=== PATIENT | female | born 1985 | race Caucasian/White ===

== ENCOUNTER 2020-09-21 06:55 | Day surgery (SDC) | payer OTHER ==
[~2020-09-21] VITALS: Ht 162.6 cm; Wt 79.1 kg
--- NOTE | 2020-09-21 08:01 | NUR ---
PT ALERT, ORIENTED AND SUPPORTED BY HER ALEM. PT TRAVELLED FROM [place] THIS MORNING, BOTH SEEM PREPARED, HAVE FEW QUESTIONS. PT STATED SHE HAD NOT HAD ANY SURGERY BEFORE, GAVE OUTLINE OF THE DAY. ALL QUESTONS ASKED ANSWERED. GAVE ENCOURAGEMENT AND BLESSING. WILL FOLLOW
--- NOTE | 2020-09-21 08:42 | NUR ---
REPORT GIVEN TO WOOD MORTON RN. PRE OP ABX SCANNED AND GIVEN BY KEVIN MORTON. PT TO OR.
--- NOTE | 2020-09-21 09:28 | NUR ---
09/21/20 0928 Demetrice Bajwa 3617-PATIENT ARRIVED TO PACU ON 6L MASK RR EVEN NONAROUSABLE ORAL AIRWAY IN PLACE. SR. IVF INFUSING. PACKING TO NOSE WITH SUTURES GAUZE AND TAPE PLACED OVER SMALL AMT OF DRAIANGE.
--- NOTE | 2020-09-21 10:10 | NUR ---
PT ARRIVED FROM PACU. REPORT RECEIVED FROM KEVIN EAST. PT ALERT AND ORIENTED. PT DENIES NAUSEA, REPORTS 6/10 BURNING PAIN IN NASAL AND SINUS AREA. PT ALSO REPORTS 4/10 BURNING EYES. COOL CLOTH PROVIDED FOR EYES WHICH DROPS PAIN TO 2/10. SEE MAR FOR MEDICATION GIVE FOR NASAL/SINUS PAIN. GAUZE DRESSING SHOWS SMALL AMOUNT OF RED/PINK DRAINAGE. PT TOELRATING WATER AND PO CRACKERS. VITAL SIGNS STABLE. PT DENIES ADDITIONAL REQUESTS OR COMPLAINTS. BED RAILS UP. CALL LIGHT WITHIN REACH. PTS AT BEDSIDE.
[2020-09-21] MEDS ORDERED: CEPHALEXIN500 M1 PO (10:34)
[2020-09-21] MEDS ORDERED: HYDROCODON-ACE1 EA10 PO (10:34)
--- NOTE | 2020-09-21 11:00 | NUR ---
THIS RN TO ROOM TO CHECK ON PT. PT REPORTS PAIN IN EYES AND NOSE HAVE RESOLVED, NOW 0/10. PT DENIES NAUSEA. PT TOLERATING PO FOOD AND FLUIDS. PT UP WITH STAND BY ASSIST TO AMBULATE TO RESTROOM, PT VOIDS 400ML CLEAR YELLOW URINE WITHOUT ISSUE. STAND BY ASSIST BACK TO BED. PT REPORTS SHE FEELS "READY TO GO HOME." VITAL SIGNS TAKEN, STABLE. MUSTACH GAUZE DRESSING TO NOSE UNCHANGED. PT REQUESTS GAUZE BE CHANGED BEFORE DISCHARGE. EDUCATION DONE WITH PT REGARDING WHEN AND HOW TO CHANGE DRESSING. PT DEMONSTRATES UNDERSTANDING AND CHANGES GAUZE MUSTACH DRESSING WITH ASSISTANCE FROM THIS RN. GAUZE AND PAPER TAPE SUPPLIES PROVIDED TO PT FOR DRESSING CHAGNES PRN AT HOME. DISCHARGE INSTRUCTIONS REVIEWED WITH PT AND PTS . PT AND VERBALIZE UNDERSTANDING OF INSTRUCTIONS, MEDICATIONS, FOLLOW UP AND WHEN TO CALL THE DOCTOR AND BOTH STATE THEIR QEUSTIONS HAVE BEEN ANSWERED. IV DC'D PER PROTOCOL, GAUZE AND COBAN APPLIED. PT DRESSES SELF, NO ASSISTANCE NEEDED. PT WHEELED FROM DAY SURGERY, NO ADDITIONAL REQUESTS OR CONCERNS.
--- NOTE | 2020-09-21 13:30 | OR ---
[facility] [address] [place], [place] [address] Signed DATE OF OPERATION: 09/21/2020 SURGEON: Nikita Capellan MD LOCATION: [facility]patient Surgery. PREOPERATIVE DIAGNOSIS: Nasal obstruction due to septal deformity and inferior turbinate hypertrophy. POSTOPERATIVE DIAGNOSIS: Nasal obstruction due to septal deformity and inferior turbinate hypertrophy. PROCEDURE: Septoplasty cautery bilateral inferior turbinates, submucosal. ANESTHESIA: General LMA, INSPECT[employer], Lillian. 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 This has been unresponsive to appropriate medications, nasal steroid sprays, decongestants, antihistamines, and she is taken to the operating room for the above-mentioned procedures. OPERATIVE PROCEDURE AND FINDINGS: After informed consent, the patient was taken to the operating room, placed in the supine position where general LMA anesthesia was induced. The patient and procedure were verified. The patient was repositioned. The patient received preoperative intranasal oxymetazoline and intravenous Ancef. Headlight speculum exam of the nasal cavity showed septal deformity, large spur and a shelf inferiorly on the left and superiorly on the right. Septal mucosa was injected with 1% lidocaine with epi. The mucosa was elevated off the left septal spur and the spur was removed with Grace. The septum was straightened and airway improved in this manner. The shelf on the right was medialized with a speculum. Airway was improved also on the right side. The inferior turbinates were then cauterized with a long handle needle point cautery starting on the left, multiple transmucosal passes on the inferior turbinate on the medial and inferior surface starting anteriorly extending all the way back posteriorly. Excellent airway improvement was obtained in this manner and same procedure on the right Electronically Signed By: NIKITA CAPELLAN MD 09/21/20 1330 PATIENT NAME: RENETTA VANCE OPERATIVE REPORT DATE OF : 89 REPORT #: [id number] PHYSICIAN: NIKITA CAPELLAN MD PCP: OTHER PCP REPORT IS CONFIDENTIAL AND NOT TO BE RELEASED WITHOUT AUTHORIZATION [facility] [address] [place], [place] [address] Signed inferior turbinate. Bleeding was minimal, stopped afterwards. Packing was then placed, trimmed Merocel coated with Neosporin 1 piece each side tied anteriorly over a pad. The pharynx was then suctioned, clear of blood secretions. The patient was awakened, extubated, transported to recovery room in good condition. No complications. BLOOD LOSS: Minimal. SPECIMEN: No specimen. DRAINS: No drains. PACKING: One piece of Merocel in each nostril. Nikita Capellan MD GC/CHRISL /[id number] Copies: ~ Electronically Signed By: NIKITA CAPELLAN MD 09/21/20 1330 PATIENT NAME: RENETTA VANCE OPERATIVE REPORT DATE OF : 89 REPORT #: [id number] PHYSICIAN: NIKITA CAPELLAN MD PCP: OTHER PCP REPORT IS CONFIDENTIAL AND NOT TO BE RELEASED WITHOUT AUTHORIZATION
== END 2020-09-21 11:15 | disposition home or self-care (01) ==
LOC: DS 06:55 → OPS 06:55 → DS 08:45 → OPS 11:15
PROVIDERS: ATTEND Otolaryngology
PROC: 09BM0ZZ Excision of Nasal Septum, Open Approach (ICD-10-PCS; principal; 2020-09-21 08:45)
PROC: 095L0ZZ Destruction of Nasal Turbinate, Open Approach (ICD-10-PCS; 2020-09-21 08:45)
DX: J34.2 Deviated nasal septum (principal); J34.89 Other specified disorders of nose and nasal sinuses; J34.3 Hypertrophy of nasal turbinates; J32.9 Chronic sinusitis, unspecified; R06.83 Snoring; K21.9 Gastro-esophageal reflux disease without esophagitis
CPT/HCPCS: 00160; J0690; J2250; J2405; J3010; J7121